=== PATIENT | male | born 1950 | race Caucasian/White ===

== ENCOUNTER 2023-05-02 12:21 | Emergency (ER) | payer MEDICARE, SELFPAY ==
[2023-05-02 12:24] VITALS: BP 137/89
[2023-05-02 13:34] VITALS: BMI 24.6
--- NOTE | 2023-05-02 13:40 | ED.GENMED ---
History of Present Illness
General
Chief Complaint: Cough
Time Seen by Provider: 05/02/23 13:29
Travel History
Have you had any contact with someone who has COVID-19?: No
Do you have any symptoms of coronavirus? Fever > 100 degrees, chills, cough, shortness of breath, sore throat, loss of taste or smell, muscle aches, or headache?: No
History of Present Illness
History of Present Illness:
73-year-old male presents the emergency department for evaluation of headache, general fatigue, and intractable coughing for the past 9 to 10 days after being diagnosed with COVID-19. Does have some mild exertional shortness of breath. Denies any
associated fever, sweating, chest pain, leg swelling, or extremity paresthesias.
Past History
Past History
ED Past Medical History: Hypercholesterolemia
ED Past Surgical History: None
Patient has exhibited threatening behavior?: No
Social History
Tobacco: Non-smoker
Alcohol: Occasional
Drug: None
Personal:
Living: with family
Employment: Retired
Family History
Family History: Other (No family history of kidney stones)
Review of Systems
Review of Systems
Allergies reviewed?: Yes
All Other Systems: ROS reviewed and negative except as documented in HPI and ROS
Phy Exam
Physical Exam
Physical Exam:
GEN: Well appearing, NAD, WDWN
HEENT: Oral mucosa moist, no scleral icterus
Cardiac: Regular rate and rhythm
Lung: No respiratory distress, no tachypnea, lungs clear to auscultation bilaterally
MSK: No gross deformity or injuries
Skin: Good color, no pallor or jaundice, no rashes
Neuro: AO x3, moves all extremities freely
Psych: Calm, cooperative
Course
Orders/Labs/Results
Orders:
Orders
05/02/23 13:39
0.9% Sodium Chloride 1000 ml [Nss] 1,000 ml IV BOLUS
Ketorolac [Toradol] 15 mg IV NOW STA
CR Chest - 2 Views Urgent
Comment:
Reason For Exam: cough/SOB
05/02/23 13:46
Complete Blood Count/With Diff Urgent
Comprehensive Metabolic Panel Urgent
Abnormal Lab Results
05/02/23
13:46
WBC 10.9 H 10^3/uL
(4.8-10.8)
RBC 4.43 L 10^6/uL
(4.70-6.10)
Abs Immat Gran (auto) 0.1 H 10^3/uL
(0-0.05)
Absolute Neuts (auto) 8.7 H 10^3/uL
(1.4-6.5)
Absolute Lymphs (auto) 0.9 L 10^3/uL
(1.2-3.4)
Absolute Monos (auto) 1.2 H 10^3/uL
(0.1-0.6)
Neutrophils % 79.2 H %
(42.2-75.2)
Lymphocytes % 8.3 L %
(20.5-51.1)
Monocytes % 11.4 H %
(1.7-9.3)
Sodium 134 L mmol/L
(135-145)
Glucose 110 H mg/dl
(70-99)
05/02/23 13:46
05/02/23 13:46
Vital Signs
Initial and Last Documented VS:
Initial Vital Signs
Temp Pulse Resp BP Pulse Ox
98.7 F 107 20 137/89 94
05/02/23 12:24 05/02/23 12:24 05/02/23 12:24 05/02/23 12:24 05/02/23 12:24
Last Documented Vital Signs
Temp Pulse Resp BP Pulse Ox
98.7 F 107 20 138/85 94
05/02/23 12:24 05/02/23 12:24 05/02/23 12:24 05/02/23 15:17 05/02/23 12:24
MDM/Problems Addressed
MDM/Problems Addressed:
Chest x-ray independently interpreted by me is negative for acute cardiopulmonary abnormality. Labs are reassuring. Patient given 1 L normal saline and analgesics for headache, symptoms marginally improved. Encouraged further supportive care at
home, no indication for admission as he is not hypoxic
*Critical Care Note
Total Time (30-74mins, 75-104mins- exclusive of procedures): Not Applicable
ED Attending Note
-
Portions of this chart may have been created with voice recognition software.� Occasional wrong word or��sound alike� substitutions may have occurred due to the inherent limitations of voice recognition software.
Discharge Plan
Departure
Patient Disposition: Home (Routine Discharge)
Date of Disposition: 05/02/23
Time of Disposition: 14:41
Patient with high blood pressure during this ER visit?: No
Discharge Problem:
COVID-19
Instructions: COVID-19 (DC)
Prescriptions:
No Action
celecoxib 200 MG capsule
200 mg PO DAILY
trazodone 100 MG tablet
100 mg PO HS
aspirin 81 mg Tablet,Delayed Release (Dr/Ec)
81 mg PO QPM
acetaminophen 500 mg Tablet
1,000 mg PO Q6H PRN (Reason: physical intimacy)
sildenafil [Viagra] 100 mg Tablet
100 mg PO DAILY PRN (Reason: physical intimacy)
pantoprazole 40 mg Tablet,Delayed Release (Dr/Ec)
40 mg PO QPM
metoprolol succinate [Toprol XL] 25 mg Tablet Extended Release 24 Hr
25 mg PO DAILY
rosuvastatin [Crestor] 20 mg Tablet
20 mg PO DAILY
clopidogrel 75 mg Tablet
75 mg PO DAILY Qty: 90 5RF
nitroglycerin [nitroglycerin] 0.4 mg tablet, sublingual
0.4 mg sublingual [id number] PRN (Reason: chest pain) Qty: 25 5RF
Referrals:
Melissa Pedro MD [Family Provider] -
Interventions
Interventions:
*Risk Screen - Suicide Last Done: 05/02/23 12:24
*General Assessment Last Done: 05/02/23 13:34
*Neglect/Abuse Screening Last Done: 05/02/23 12:24
ED- Fall Risk Assessment Last Done: 05/02/23 13:36
*ED COVID-19 Vaccine History Last Done: 05/02/23 12:24
*Nursing Disposition Last Done: 05/02/23 15:32
ED- Pulmonary Assessment Last Done: 05/02/23 13:36
Discharge Date and Time
Discharge Date/Time: 05/02/23 15:33
[2023-05-02] MEDS: NSS 1000 IV (13:54)
[2023-05-02] MEDS: TORADOL 15 MG IV (13:54)
[2023-05-02 14:05] LABS: % Basophils 0.2 % (0-2); % Eosinophils 0.4 % (0-6); % Immature Granulocytes 0.5 % (0-0.5); % Lymphocytes 8.3 % (20.5-51.1); % Monocytes 11.4 % (1.7-9.3); % Neutrophils 79.2 % (42.2-75.2); Absolute Immature Granulocytes 0.1 10^3/uL (0-0.05); Absolute Lymphocytes 0.9 10^3/uL (1.2-3.4); Absolute Monocytes 1.2 10^3/uL (0.1-0.6); Absolute Neutrophils 8.7 10^3/uL (1.4-6.5); Hematocrit 40.5 % (39.0-52.0); Hemoglobin 13.7 g/dL (13.0-18.0); Mean Corp Hgb Conc. 33.8 g/dL (33.0-37.0); Mean Corpuscular Hgb 30.9 pg (27.0-31.0); Mean Corpuscular Volume 91.4 fL (80.0-94.0); Nucleated Red Blood Cells % 0 % (-); Platelet Count 216 10^3/uL (130-400); Red Blood Cell Count 4.43 10^6/uL (4.70-6.10); Red Cell Dist. Width 13.2 % (11.5-14.5); White Blood Cell Count 10.9 10^3/uL (4.8-10.8)
[2023-05-02 14:32] LABS: ALT (SGPT) 33 U/L (0-50); AST (SGOT) 32 U/L (17-59); Albumin 3.7 g/dl (3.5-5.0); Alkaline Phosphatase 55 U/L (38-126); Blood Urea Nitrogen 20 mg/dl (9-20); Calcium 9.1 mg/dl (8.4-10.2); Carbon Dioxide 27 mmol/L (22-30); Chloride 103 mmol/L (98-107); Estimated Creatinine Clearance 111 ml/min; Glucose 110 mg/dl (70-99); Potassium 4.2 mmol/L (3.5-5.1); Sodium 134 mmol/L (135-145); Total Bilirubin 0.7 mg/dl (0.2-1.3); Total Protein 6.5 g/dl (6.3-8.2); eGFR > 60.00
[2023-05-02 15:17] VITALS: BP 138/85
== END 2023-05-02 15:33 | disposition home or self-care (01) ==
LOC: EMR 12:21
PROVIDERS: Physician Assistant; EMERGENCY PHYSICIAN Emergency Medicine; FAMILY PHYSICIAN Family Medicine
DX: U07.1 COVID-19 (principal); R51.9 Headache, unspecified; E78.00 Pure hypercholesterolemia, unspecified
CPT/HCPCS: 99283; 96374; 96361; 71046; 80053; 85025

== ENCOUNTER → 2023-06-12 06:23 | Day surgery (SDC) | payer MEDICARE, SELFPAY | LOC: GI 06:23 | PROVIDERS: ATTENDING PHYSICIAN Internal Medicine Gastroenterology; FAMILY PHYSICIAN Family Medicine | DX: K22.2 Esophageal obstruction (principal); K44.9 Diaphragmatic hernia without obstruction or gangrene; R13.10 Dysphagia, unspecified; R12 Heartburn; F45.8 Other somatoform disorders | CPT/HCPCS: 43239; 88305 ==

== ENCOUNTER → 2023-11-14 10:54 | Outpatient (REF) | payer MEDICARE, SELFPAY | LOC: PAVMRI 10:54 | PROVIDERS: ATTENDING PHYSICIAN Internal Medicine Gastroenterology; FAMILY PHYSICIAN Family Medicine | DX: K86.2 Cyst of pancreas (principal) | CPT/HCPCS: 74183; A9575 ==

== ENCOUNTER → 2024-03-27 12:39 | Outpatient (REF) | payer MEDICARE, SELFPAY | LOC: HWCARD 12:39 | PROVIDERS: ATTENDING PHYSICIAN Physical Medicine & Rehabilitation; FAMILY PHYSICIAN Family Medicine | DX: Z01.818 Encounter for other preprocedural examination (principal) | CPT/HCPCS: 93005 ==

== ENCOUNTER → 2024-05-16 12:44 | Outpatient (REF) | payer MEDICARE, SELFPAY | LOC: PAVMRI 12:44 | PROVIDERS: ATTENDING PHYSICIAN Internal Medicine Gastroenterology; FAMILY PHYSICIAN Family Medicine | DX: K86.2 Cyst of pancreas (principal) | CPT/HCPCS: 74183; A9575 ==

== ENCOUNTER → 2024-09-25 11:19 | Outpatient (REF) | payer MEDICARE, SELFPAY | LOC: RCS 11:19 | PROVIDERS: ATTENDING PHYSICIAN Internal Medicine Cardiovascular Disease; FAMILY PHYSICIAN Family Medicine | DX: I25.10 Atherosclerotic heart disease of native coronary artery without angina pectoris (principal); I25.5 Ischemic cardiomyopathy; E78.2 Mixed hyperlipidemia; R07.89 Other chest pain | CPT/HCPCS: 78452; 93017; A9500 ==

== ENCOUNTER → 2024-12-26 11:00 | Outpatient (REF) | payer MEDICARE, SELFPAY | LOC: PAVMRI 11:00 | PROVIDERS: ATTENDING PHYSICIAN Internal Medicine Gastroenterology; PRIMARYCARE PHYSICIAN Family Medicine | DX: K86.2 Cyst of pancreas (principal) | CPT/HCPCS: 74183; A9575 ==

== ENCOUNTER → 2025-03-17 09:42 | Outpatient (REF) | payer MEDICARE, SELFPAY | LOC: HWRAD 09:42 | PROVIDERS: ATTENDING PHYSICIAN Specialist; FAMILY PHYSICIAN Family Medicine | DX: Q61.02 Congenital multiple renal cysts (principal) | CPT/HCPCS: 76775 ==